=== PATIENT | female | born 1990 | race American Indian/Alaskan Native ===

== ENCOUNTER 2019-01-30 13:16 | Emergency (ER) | payer OTHER ==
[2019-01-30 13:42] LABS: Basophils # (Auto) 0.1 K/mm3 (0.0-0.1); Basophils % (Auto) 1.2 % (0.0-1.8); Eosinophils # (Auto) 0.1 K/mm3 (0.0-0.4); Eosinophils % (Auto) 1.1 % (0.0-4.3); Hematocrit 35.9 % (30.3-42.9); Hemoglobin 12.3 gm/dl (10.1-14.3); Lymphocytes # (Auto) 2.5 K/mm3 (1.2-5.4); Lymphocytes % (Auto) 42.3 % (13.4-35.0); Mean Corpuscular HGB Conc 34 % (30-34); Mean Corpuscular Volume 84 fl (79-97); Monocytes # (Auto) 0.6 K/mm3 (0.0-0.8); Monocytes % (Auto) 10.8 % (0.0-7.3); Platelet Count 381 K/mm3 (140-440); Red Blood Count 4.28 M/mm3 (3.65-5.03); Red Cell Distribution Width 15.3 % (13.2-15.2)
[2019-01-30] MEDS ORDERED: ZOFRAN ODT PO ONE (15:01)
[2019-01-30 15:34] LABS: Bilirubin,Urine NEG (Negative); Blood,Urine NEG (Negative); Color,Urine Yellow (Yellow); Mucus,Urine 2+ /HPF; Protein,Urine <15 mg/dL mg/dL (Negative); Urobilinogen,Urine < 2.0 mg/dL (<2.0)
--- NOTE | 2019-01-30 19:02 | Ultrasound Report ---
PROCEDURE: US OB <= 14 WEEKS FETUS HISTORY: preg with abd pain/bleeding FINDINGS: Real-time ultrasound of the pelvis was performed by transabdominal and endovaginal techniqu e. There is a single live intrauterine gestation approximately 6 weeks and 2 days and cardiac acti vity of 117 bpm. The right ovary measures 3.8 x 1.6 x 2.2 cm and the left ovary 4.4 x 3.0 x 3.4 cm. There is a left ov frankie thick-walled cyst, 2.4 cm, likely luteal cyst. IMPRESSION: Single live intrauterine gestation approximately 6 weeks and 2 days. Estimated date of delivery is 2018 This document is electronically signed by Dada Spencer MD., January 30 2019 07:00:33 PM ET
--- NOTE | 2019-01-30 19:03 | Ultrasound Report ---
PROCEDURE: US OB TRANSVAGINAL HISTORY: preg with abd pain/bleeding FINDINGS: Real-time ultrasound of the pelvis was performed by transabdominal and endovaginal techniqu e. There is a single live intrauterine gestation approximately 6 weeks and 2 days and cardiac acti vity of 117 bpm. The right ovary measures 3.8 x 1.6 x 2.2 cm and the left ovary 4.4 x 3.0 x 3.4 cm. There is a left ov frankie thick-walled cyst, 2.4 cm, likely luteal cyst. IMPRESSION: Single live intrauterine gestation approximately 6 weeks and 2 days. Estimated date of delivery is 2018 This document is electronically signed by Dada Spencer MD., January 30 2019 07:00:52 PM ET
[2019-01-30] MEDS ORDERED: TYLENOL ONE (19:26)
--- NOTE | 2019-01-30 19:35 | Emergency Department Report ---
ED HPI - General Chief complaint: Vaginal Bleeding Stated complaint: 7WKS /SPOTTING BLOOD Time Seen by Provider: 01/30/19 14:53 Source: patient Mode of arrival: Ambulatory Limitations: No Limitations - History of Present Illness Initial comments: Patient is a 28-year-old Kat[place] female who is presenting with some mild vaginal spotting and lower abdominal discomfort. Patient's states she took a test at home and surprisingly was positive. Patient believes she could not get . Patient is estimated she may be partially 6 weeks . Patient states the cramping is 8 out of 10 in severity. She denies a ny dysuria or vaginal discharge. Patient states it is no fever nausea vomiting or diarrhea at this time. MD Complaint: abdominal pain Radiation: suprapubic Severity scale (0 -10): 8 Quality: cramping Consistency: intermittent Improves with: none Worsens with: none Associated symptoms: nausea/vomiting, vaginal bleeding. denies: vaginal discharge, abdominal pain, headache, vision changes, malaise, dysparuenia, rash, seizure, shortness of breath, syncope, weakness - Related Data Previous Rx's Medication Instructions Recorded Last Taken Type Ondansetron [Zofran Odt] 4 mg PO Q8HR #10 tab.rapdis 01/30/19 Unknown Rx Allergies Allergy/AdvReac Type Severity Reaction Status Date / Time No Known Allergies Allergy Unverified 01/30/19 13:18 ED Review of Systems ROS: Stated complaint: 7WKS /SPOTTING BLOOD Other details as noted in HPI Comment: All other systems reviewed and negative ED Past Medical Hx - Past Medical History Previous Medical History?: No - Surgical History Past Surgical History?: No - Social History Smoking Status: Never Smoker Substance Use Type: None - Medications Home Medications: Home Medications Medication Instructions Recorded Confirmed Last Taken Type Ondansetron [Zofran Odt] 4 mg PO Q8HR #10 tab.rapdis 01/30/19 Unknown Rx ED Physical Exam - General Limitations: No Limitations General appearance: alert, in no apparent distress - Head Head exam: Present: atraumatic, normocephalic - Eye Eye exam: Present: normal appearance - ENT ENT exam: Present: mucous membranes moist - Neck Neck exam: Present: normal inspection - Respiratory Respiratory exam: Present: normal lung sounds bilaterally. Absent: respiratory distress, wheezes, rales, rhonchi - Cardiovascular Cardiovascular Exam: Present: regular rate, normal rhythm. Absent: systolic murmur, diastolic murmur, rubs, gallop - GI/Abdominal GI/Abdominal exam: Present: soft, normal bowel sounds. Absent: distended, tenderness, guarding, rebound, rigid - Extremities Exam Extremities exam: Present: normal inspection - Back Exam Back exam: Present: normal inspection - Neurological Exam Neurological exam: Present: alert, oriented X3 - Psychiatric Psychiatric exam: Present: normal affect, normal mood - Skin Skin exam: Present: warm, dry, intact, normal color. Absent: rash ED Course Vital Signs 01/30/19 13:20 Temperature 98.6 F Pulse Rate 74 Respiratory 18 Rate Blood Pressure 141/90 O2 Sat by Pulse 100 Oximetry ED Medical Decision Making - Lab Data Result diagrams: 01/30/19 13:31 - Radiology Data [facility] [address] [place] [address] Ultrasound Report Signed Patient: MARIA DE JESUS SAINZ MR#: [id number] : 1990 Acct:[id number] Age/Sex: 28 / F ADM Date: 01/30/19 Loc: ED Attending Dr: Ordering Physician: DADA GALEAS MD Date of Service: 01/30/19 Procedure(s): US OB transvaginal Accession Number(s): [id number] cc: DADA GALEAS MD PROCEDURE: US OB TRANSVAGINAL HISTORY: preg with abd pain/bleeding FINDINGS: Real-time ultrasound of the pelvis was performed by transabdominal and endovaginal technique. There is a single live intrauterine gestation approximately 6 weeks and 2 days and cardiac activity of 117 bpm. The right ovary measures 3.8 x 1.6 x 2.2 cm and the left ovary 4.4 x 3.0 x 3.4 cm. There is a left ovarian thick-walled cyst, 2.4 cm, likely luteal cyst. IMPRESSION: Single live intrauterine gestation approximately 6 weeks and 2 days. Estimated date of delivery is September 23, 2019 This document is electronically signed by Dada Spencer MD., January 30 2019 07:00:52 PM ET Transcribed By: HOLLY Dictated By: DADA SPENCER MD Electronically Authenticated By: DADA SPENCER MD Signed Date/Time: 01/30/191902 DD/ 50 TD/TT: 01/30/191851 - Medical Decision Making Patient does have a 6-1/2 week IUP that appears viable. Patient will be discharged home with follow-up with ENVIRONMENTAL COORDINATOR. Critical care attestation.: If time is entered above; I have spent that time in minutes in the direct care of this critically ill patient, excluding procedure time. ED Disposition Clinical Impression: First trimester bleeding Disposition: - TO HOME OR SELFCARE Is pt being admited?: No Does the pt Need Aspirin: No Condition: Stable Instructions: Threatened Miscarriage (ED) Referrals: CRISTIANA DE LA O MD [Staff Physician] - 3-5 Days Time of Disposition: 19:35
[2019-01-30] MEDS ORDERED: TYLENOL PO ONE (20:08)
[2019-01-30 20:21] VITALS: BP 138/91
== END 2019-01-30 19:45 | disposition home or self-care (01) ==
LOC: ED 13:16
DX: O26.851 Spotting complicating pregnancy, first trimester (principal); O26.891 Other specified pregnancy related conditions, first trimester; R10.30 Lower abdominal pain, unspecified; Z3A.01 Less than 8 weeks gestation of pregnancy
CPT/HCPCS: 36415; 76801; 76817; 81001; 84702; 85025; 86900; 86901; Q0162